=== PATIENT | male | born 1980 | race Caucasian/White ===

== ENCOUNTER → 2017-06-16 08:01 | Outpatient (CLI) | payer OTHER, SELFPAY ==
[2017-06-16 08:50] LABS: Cholesterol 155 mg/dL (200); Creatinine, Serum 1.04 mg/dL (0.70-1.30); EST Glomerular Filtration Rate 85 mL/min (>60); Est Glom Filt Rate - Afr Amer 103 mL/min (>60); Glucose 80 mg/dL (74-106); High Density Lipoprotein 34 mg/dL; Triglycerides 90 mg/dL; Very Low Density Lipoprotein 18 mg/dL (5-40)
[2017-06-16 16:17] LABS: Xtra Tube EP Lab EXTRA TUBE
[2017-06-16 16:19] LABS: Xtra Tube EP Lab EXTRA TUBE
== END ==
PROVIDERS: Visit Provider Family Medicine
DX: Z00.00 Encounter for general adult medical examination without abnormal findings (principal)
CPT/HCPCS: 36415; 80061; 82565; 82947

== ENCOUNTER 2023-10-07 06:33 | Observation (INO) | payer OTHER, SELFPAY ==
[2023-10-07] VITALS (13 sets, daily range): BP systolic 130–170; BP diastolic 79–102; PULSE 75–105; RESP 16–18; TEMP 36.6–37.2; O2SAT 95–99; BMI 27.5; BMI 27.9
--- NOTE | 2023-10-07 | IMM_PTH ---
PATIENT: EKTA YORK LOC: MS3 U#:[id number] AGE/SX: 42/M [place] [facility] [place]: Dr. Chantal Lemus MD : 1980 BED: 1 DIS: 10/08/2023 SPEC #: [id number] RECD: 10/11/23 12:53 STATUS: SOUT REQ #: [id number] ARJUN: 10/07/23 00:[address]: Raffaele Nelson DEPT: IMMUNOHISTOCHEMISTRY RECD BY: Gianfranco Ascencio ENTERED: 10/11/23 12:54 SP TYPE: IMMUNO OTHR DR: MD Dr. Chantal Wolf MD Tissues: B - Esophagus, NOS Procedures: P53 (initial) KI-67 (add) Comments: @ Ordering doctor for P53 edited from to @ by DIO at 10/11/23 1300 @ Ordering doctor for KI67. edited from to @ by DIO at 10/11/23 1300 @ Submitting doctor edited from to @ by DIO at 10/11/23 1300 PHYSICIAN & [place] [phone] SPECIMEN INFORMATION: Tissue Source: B- Distal esophagus Clinical Info: Upper GI bleed Specimen Number: [id number] CPT code: 47602,12815 METHODOLOGY: Deparaffinized sections of prefer/formalin-fixed tissue or PAP/DQ stained slides are incubated with monoclonal/polyclonal antibodies/oligonucleotide probes. Localization is made via biotin free immunoperoxidase method. Appropriate controls are performed and reacted as expected. Results on target cell population are indicated in the following table: RESULTS: ANTIBODY / CLONE RESULT Block B P53 (DO-7) positive, wild type pattern Ki-67 (30-9) positive, low These tests were developed and their performance characteristics determined by [facility]. They may not have been cleared or approved by the U.S. Food and Drug Administration. The FDA has determined that such clearance or approval is not necessary. The above immunohistochemical/dualISH markers are ordered and reviewed by the Pathologist. INTERPRETATION: B. Distal esophagus, biopsy: No evidence of dysplasia. NHAN/ 10/12/2023
--- NOTE | 2023-10-07 06:54 | CT_ITS ---
STUDY: CTA ABDOMEN AND PELVIS WITH CONTRAST REASON FOR EXAM: Male, 42 years old. GI bleed RADIATION DOSAGE (If Supplied By Facility): CTDIvol = ( 17.74 ) mGy, DLP = ( 762.18 ) mGycm TECHNIQUE: Transaxial images were obtained from the dome of the diaphragm to the symphysis pubis without oral contrast. IV 100mL Isovue-370 was administered. Sagittal and coronal images were reconstructed. Individualized dose optimization techniques were used for this CT. COMPARISON: None. FINDINGS: Minimal atelectasis and/or scarring in the anterior aspect of the left lower lobe. The visualized portions of the heart are within normal limits. There is decreased attenuation of the liver consistent with steatosis. Normal gallbladder and extrahepatic biliary system. Normal spleen. Normal pancreas. Normal bilateral adrenal glands. Normal right kidney. Normal left kidney. There is a small hiatal hernia. Normal small intestine. Moderate amount of fecal material is seen in the rectosigmoid colon. The appendix is visualized and appears normal. Normal abdominal aorta. Normal inferior vena cava. Normal retroperitoneum. Normal urinary bladder. There is enlargement of the prostate gland. The prostate measures 5.9 cm x 3.9 cm. This causes indentation at the bladder base. Normal abdominal wall. Normal osseous structures. CT/CTA Abd/Pelvis W/WO Contrast IMPRESSION: Fatty infiltration of the liver. Moderate amount of fecal material is seen in the rectosigmoid colon. No evidence of extravasation of contrast. Electronically Signed: Barrie Hutchison MD at 8:53 EDT ,
--- NOTE | 2023-10-07 06:56 | EX.ED.DYSGE1 ---
HPI History of Present Illness Chief Complaint: GI Bleed Informant: patient and spouse/S.O. Narrative Narrative: Patient is a 42-year-old male with no significant past medical history. He states that he does not drink alcohol frequently does not have a history of bleeding disorder nor does he use blood thinners. He denies any family history or personal history of liver disease. He states he occasionally takes Aleve secondary to headache and drinks a few cups of coffee a day. He states yesterday he felt nauseous and had a bout of vomiting and it was like dark water. He states that after vomiting he did feel better and did not think much of this. However this morning his stomach was upset and he went to the bathroom and he had dark tarry stool. Therefore with a bout of dark emesis yesterday and now dark stool this morning he had concern for internal bleeding and comes in for evaluation [facility] Medical History no medical history Home Medications ?Medication ?Instructions ?Recorded ?Last Taken ?Type NK 10/07/23 Unknown History Allergy/AdvReac Type Severity Reaction Status Date / Time No Known Allergies Allergy Verified 10/07/23 06:34 Surgical History no surgical history Social History Smoking Status: Former smoker [facility] [place] ED Constitutional Constitutional ED: Denies chills or fever(s) Eyes Eyes: Denies change in vision ENT ENT ED: Denies rhinorrhea or sore throat Cardiovascular Cardiovascular: Reports racing heartbeat; Denies chest pain or palpitations Respiratory/Chest Respiratory/Chest: Denies cough or dyspnea Gastrointestinal Gastrointestinal: Reports melena and vomiting; Denies abdominal pain, diarrhea or nausea Genitourinary Genitourinary ED: Denies dysuria or hematuria Musculoskeletal Musculoskeletal: Denies myalgias Integumentary Denies rash Neurologic Neurologic: Denies headache(s) Hematologic/Lymphatic Hematologic/Lymphatic: Denies easy bleeding or easy bruising EXAM Physical Exam Const Vital Signs: 10/07/23 06:34 Temperature 97.9 F Temperature Source Temporal Pulse Rate 97 Respiratory Rate 18 Blood Pressure 170/95 H Blood Pressure Mean 120 Pulse Ox 97 Positive well nourished and well developed General Appearance ED: well developed; Negative for pallor HEENT Reports moist mucous membranes HEENT Narrative: No dark discoloration in the posterior pharynx no dried blood or active bleeding noted No secondary changes to suggest infection Eyes PERRL and EOMs intact bilaterally General Eye ED: Negative for pale conjunctiva or scleral icterus Neck supple Resp normal respiratory effort and clear to auscultation bilaterally Cardio regular rhythm Rate: tachycardic and other Other Details: Tachycardic rate with regular rhythm No murmurs rubs or gallops Radial and carotid pulses are equal and symmetric GI normal to inspection, nondistended, normoactive bowel sounds, non-tender, non-distended and no masses GI Narrative: No voluntary guarding or rigidity or pulsatile mass Auscultation: normoactive bowel sounds Palpation: soft Narrative: No anal fissure or external hemorrhoids noted Rectal tone is normal Stool is melanotic in color Extremity normal to inspection Neuro oriented x3, CN's II-XII intact bilaterally and no sensory deficits noted Sensorium / Orientation: alert Motor Exam: strength 5/5 throughout Psych mental status grossly normal Skin no rashes or lesions noted, no wounds and skin turgor normal Skin Narrative: Capillary refills less than 3 seconds General Skin Exam: Negative for jaundice or pallor MDM MDM MDM Narrative Medical decision making narrative: Patient arrived to the ER mildly hypertensive and tachycardic but otherwise with stable vitals. He reports that he uses occasional caffeine and occasional NSAIDs but and has not on a daily basis and caffeine is reportedly mild in nature. He denies any history of intestinal disorder such as ulcer colitis or Crohn's disease and any history of bleeding disorder or blood thinner use. However with report of of hematemesis and physical exam showing melanotic stool there is concern for acute GI bleed most likely from potential gastritis/stomach ulcer. As he is only mildly tachycardic but awake alert and hypertensive not hypotensive I would not start blood at this time the patient will be placed on IV fluids and Protonix bolus and drip. As he denies any history of alcohol abuse I have low concern that this is esophageal variceal bleeding and will hold off on any type of octreotide medication. At this time blood work and CTA are still pending and therefore patient will be signed out to the day physician Dr. Elder pending results. History & Record Review Discussion w/independent historian: Patient and Significant other Discharge Plan Triage Chief Complaint: GI Bleed ED Provider: Jim Jones Dx/Rx/DC Orders Clinical Impression: GI (gastrointestinal bleed), Gastritis Prescriptions: No Action NK Primary Care Provider: Adarsh Jasso Referrals: Adarsh Jasso MD [Primary Care Provider] - Print Language: Zambian
[2023-10-07] MEDS: 0.9% Normal Saline (1000mL) 1,000 ML 999 ML IV (07:01)
[2023-10-07 07:10] LABS: Absolute Lymphocyte Count 1.15 X10^3/uL (0.83-4.51); Absolute Neutrophil Count 8.6 X10^3/uL (2.0-7.7); Basophil# 0.04 X10^3/uL; Basophil% 0.4 % (0-1); Eosinophil# 0.12 X10^3/uL; Eosinophils% 1.1 % (0-5); Hematocrit 36.1 % (40-54); Hemoglobin 12.2 g/dL (13.0-16.5); Lymphocyte # 1.15 X10^3/ul (0.83-4.51); Lymphocyte % 10.7 % (19-41); Mean Corp Hgb Conc 33.8 g/dL (32-36); Mean Corpuscular Hgb 29.4 pg (27.0-32.0); Mean Platelet Vol. 9.2 fl (6.2-12.0); Monocyte# 0.79 X10^3/uL; Monocyte% 7.4 % (0-10); NRBC Flagged by Analyzer 0 % (0-5); Neutrophil # 8.57 X10^3/uL (2.7-7.7); Neutrophil % 79.9 % (47-70); Platelet Count 278 K/mm3 (150-450); RBC Distribution Width CV 12.9 % (11.6-14.6); RBC Distribution Width SD 40.5 fl (35.1-43.9); Red Blood Count 4.15 M/mm3 (4.6-6.2); White Blood Count 10.7 K/mm3 (4.4-11.0)
[2023-10-07] MEDS: Pantoprazole Sodium 80 MG in 0.9% Normal Saline (50mL Bag) 15 ML 420 MG IV BOLUS (07:25)
[2023-10-07 07:30] LABS: AST(SGOT) 18 U/L (15-37); Alanine Aminotransfer ALT/SGPT 30 U/L (16-61); Albumin, Serum 3.6 g/dL (3.2-5.0); Alkaline Phosphatase 54 U/L (45-117); Anion Gap 6 (5-15); BUN 25 mg/dL (7-18); BUN/Creat Ratio 28.2 RATIO (10-20); Bilirubin, Direct 0.14 mg/dL (0.00-0.30); Chloride 105 mmol/L (98-107); Creatinine, Serum 0.88 mg/dL (0.70-1.30); EST Glomerular Filtration Rate 99 mL/min (>60); Est Glom Filt Rate - Afr Amer 120 mL/min (>60); Estimated Creatinine Clearance 107.12 ml/min; Globulin 2.9 g/dL (2.2-4.2); Glucose 123 mg/dL (74-106); Potassium 3.8 mmol/L (3.5-5.1); Protein, Total 6.5 g/dL (6.4-8.2); Sodium Level 137 mmol/L (136-145)
[2023-10-07 07:34] LABS: Lactic Acid 1.6 mmol/L (0.4-1.9)
[2023-10-07 07:37] LABS: International Normalized Ratio 1.1; Prothrombin Time (Protime)PT. 14.1 SECONDS (11.7-14.9)
[2023-10-07] MEDS: Pantoprazole Sodium 80 MG in 0.9% Normal Saline (100mL Bag) 80 ML 10 MG CONT INF ×2 (07:38→17:20)
[2023-10-07 09:15] LABS: Partial Thromboplast Time 25.4 Seconds (24.1-36.2)
--- NOTE | 2023-10-07 09:45 | PCM.HP.STD ---
[facility] - General General Date of Admission: 10/07/23 Date of Service: 10/07/23 Chief Complaint: GI bleed HPI Narrative EKTA YORK, is a 42 M with no significant PMh who presents via the ED on 10/07/2023 with a complaint of coffee ground emesis and black tarry stools. He denies any history of alcohol use and only occasionally takes pain meds like Aleve. He states he came home from work yesterday and felt nauseous. He threw up and was dark like coffee ground. He also felt weak and lightheaded. He subsequently had a bowel movement and it was black and tarry. He denied any chest pain, abdominal pain, shortness of breath or any exertional weakness. Review of systems otherwise negative. He has no history of peptic ulcer disease and denies any weight loss. Vitals in the ED were blood pressure 167/102, pulse rate of 89, respirate rate of 16 and temperature of 98.2 Fahrenheit. She was saturating at 97% on room air. [facility] Medical History no medical history Home Medications ?Medication ?Instructions ?Recorded ?Last Taken ?Type fluticasone propionate 50 1 spray intranasal DAILY PRN 10/07/23 Unknown History mcg/actuation nasal allergy symptoms spray,suspension (Allergy Relief (fluticasone)) loratadine 10 mg tablet (Allergy 10 mg PO DAILY PRN allergy symptoms 10/07/23 Unknown History Relief (loratadine)) Allergy/AdvReac Type Severity Reaction Status Date / Time No Known Allergies Allergy Verified 10/07/23 06:34 Surgical History no surgical history Social History Smoking Status: Current some day smoker tobacco type: smokeless tobacco ROS Constitutional Constitutional: Reports fatigue, malaise and weakness; Denies anorexia, chills, fever(s) or night sweats Eyes Eyes: Denies change in vision ENT HEENT: Denies dysphagia, headache(s), loss taste/smell or throat swelling Cardiovascular Cardiovascular: Denies chest pain, edema, orthopnea, palpitations, paroxysmal nocturnal dyspnea or syncope Respiratory/Chest Respiratory/Chest: Denies cough, shortness of breath at rest or shortness of breath with exertion Gastrointestinal Gastrointestinal: Reports melena, nausea and vomiting; Denies abdominal pain, constipation, diarrhea, dyspepsia, hematemesis or hematochezia Genitourinary Genitourinary: Denies dysuria or nocturia Musculoskeletal Musculoskeletal: Denies joint pain Integumentary Integumentary: Denies dry skin Neurologic Neurologic: Denies abnormal speech, confusion, dizziness, focal weakness or headache(s) Psychiatric Psychiatric: Denies anxiety or depression Endocrine Endocrinology: Denies change in body appearance Vital Signs Vital Signs Vital Signs: 10/07/23 06:34 10/07/23 08:34 Temperature 97.9 F Temperature Source Temporal Pulse Rate 97 86 Respiratory Rate 18 16 Blood Pressure 170/95 H 147/80 H Blood Pressure Mean 120 102 Pulse Ox 97 99 Oxygen Delivery Method Room Air Weight Weight: 186 lb 8.177 oz Body Mass Index (BMI) 27.5 Physical Exam Const alert, oriented x3, no apparent distress and well nourished General Appearance: cooperative and well developed HEENT normocephalic, head/scalp atraumatic, moist oral mucous membranes and oropharynx normal Eyes PERRL and EOMs intact bilaterally Neck no lymphadenopathy, supple and no JVD Lymph Lymphatic: no lymphadenopathy noted and no lymphedema noted Resp normal respiratory effort, normal air movement and clear to auscultation bilaterally Cardio regular rate, regular rhythm, S1 normal heart sound, S2 normal heart sound and no murmurs GI normal to inspection, nondistended, normoactive bowel sounds, soft to palpation, non-tender and non-distended Extremity normal capillary refill, no clubbing, cyanosis or edema and no calf tenderness General Extremity: no tenderness to palpation of joints or extremities Skin General Skin Exam: no breakdown Neuro CN's II-XII intact bilaterally, no focal motor deficits, no sensory deficits noted and deep tendon reflexes 2+ bilaterally Motor Exam: strength 5/5 throughout and general weakness Psych thought process normal and cooperative Appearance: appropriate Results Lab / Micro Data 10/07/23 06:46 10/07/23 06:46 Labs: Laboratory Results - last 24 hr 10/07/23 06:46: WBC 10.7, RBC 4.15 L, Hgb 12.2 L, Hct 36.1 L, MCV 87.0, MCH 29.4, MCHC 33.8, RDW Std Deviation 40.5, RDW Coeff of Omar 12.9, Plt Count 278, MPV 9.2, Immature Gran % (Auto) 0.500, Neut % (Auto) 79.9 H, Lymph % (Auto) 10.7 L, [place] % (Auto) 7.4, Eos % (Auto) 1.1, Baso % (Auto) 0.4, Absolute Neuts (auto) 8.6 H, Absolute Lymphs (auto) 1.15, Nucleated RBC % 0, PT 14.1, INR 1.1, APTT 25.4, Sodium 137, Potassium 3.8, Chloride 105, Carbon Dioxide 26.0, Anion Gap 6, BUN 25 H, Creatinine 0.88, Estim Creat Clear Calc 107.12, Est GFR (MDRD) Af Amer 120, Est GFR (MDRD) Non-Af 99, BUN/Creatinine Ratio 28.2 H, Glucose 123 H, Calcium 9.0, Total Bilirubin 0.60, Direct Bilirubin 0.14, AST 18, ALT 30, Alkaline Phosphatase 54, Total Protein 6.5, Albumin 3.6, Globulin 2.9 10/07/23 07:01: Lactic Acid 1.6 Micro: Microbiology 10/07/23 06:46 Stool Stool Occult Blood (HERNAN) - Final Occult Blood Positive Imaging Radiology Impression Abdomen/Pelvis CTA 10/07/23 06:54 IMPRESSION: Fatty infiltration of the liver. Moderate amount of fecal material is seen in the rectosigmoid colon. No evidence of extravasation of contrast. Electronically Signed: Barrie Hutchison MD at 8:53 EDT , Assessment & Plan Assessment/Plan (1) GI (gastrointestinal bleed): PLAN: Plan #Acute Gi bleed admit to med surg had an episode of hematemesis and melena stools. Hb was 12.2 on admission, but trended down to 10.6 started on pantoprazole drip GI consulted She has a history of taking Aleve occasionally for generalized body pain. He therefore may have gastritis or peptic ulcer disease For EGD today. #Acute anemia due to GI bleed: Hb is 10.6. Was 12.2 on admission. asked about timing and crossing. I told I will type and screen patient but would only transfuse if hemoglobin dropped to <7. Charges/Coding Visit Charges Inpatient E&M: 67796 Init Hosp L3
--- NOTE | 2023-10-07 09:45 | NURSING ---
DR MATEO CHASE
[2023-10-07 10:05] LABS: Hematocrit 31.2 % (40-54); Hemoglobin 10.6 g/dL (13.0-16.5)
--- NOTE | 2023-10-07 10:06 | NURSING ---
MED SURG KORAM GI BLEED
[2023-10-07] MEDS: Acetaminophen 325 MG Tablet 650 MG PO (10:46)
[2023-10-07] MEDS: Ondansetron 4 MG/2 ML Vial IV (10:46)
[2023-10-07] MEDS: 0.9% Normal Saline (1000mL) 1,000 ML 125 ML IV ×2 (10:46→17:57)
--- NOTE | 2023-10-07 14:35 | EGD_PTH ---
PATIENT: EKTA YORK LOC: MS3 U#:[id number] AGE/SX: 42/M ROOM: [facility] [place] RE10/07/[address]: Dr. Chantal Lemus MD : 1980 BED: 1 DIS: 10/08/2023 SPEC #: [id number] RECD: 10/10/23 08:54 STATUS: DAMARI RELeslie #: [id number] ARJUN: 10/07/23 14:[address]: Raffaele Nelson DEPT: SURGICAL PATHOLOGY RECD BY: Margarita Sr ENTERED: 10/10/23 11:35 SP TYPE: EGD BIOPSY OT DR: MD Dr. Chantal Wolf MD Tissues: A - Duodenum, NOS B - Esophagus, NOS Procedures: Special Stain Group I Surgery Specimen Level IV Alcian Blue/PAS (control) HEADER OPERATION: EGD with biopsy and cautery with gold probe PRE-OP DIAGNOSIS: Upper GI bleed TISSUE SUBMITTED: A- Duodenum biopsy, B- Distal esophagus biopsy MICROSCOPIC DIAGNOSIS A. Duodenum, biopsy: Suggestive of Jorge Luis's gland hyperplasia. Focal gastric metaplasia. Mild non-specific chronic inflammation. B. Distal esophagus, biopsy: Gastroesophageal junction with mild chronic inflammation. Goblet cell metaplasia consistent with Worley's esophagus. No evidence of dysplasia. Focal changes of reflux. See comment. AM/ 10/11/2023 COMMENT B. Alcian blue/PAS stain with matched control supports the above diagnosis. Immunohistochemistry ([id number]) for P53 and Ki-67 will be performed and results will be reported separately. MICROSCOPIC DESCRIPTION Slides are reviewed. GROSS DESCRIPTION A. Received in fixative is one container labeled with the patient's name and designated Duodenum biopsy. The specimen consists of two irregular fragments of light boone soft tissue that in aggregate measure 0.6 x 0.5 x 0.1 cm. The specimen is totally submitted in one cassette. B. Received in fixative is one container labeled with the patient's name and designated Distal esophagus biopsy. The specimen consists of multiple irregular fragments of light boone soft tissue that in aggregate measure 0.9 x 0.6 x 0.1 cm. The specimen is totally submitted in one cassette. NHAN/ 10/10/2023 TC:3 CPT:57504u8,00768
--- NOTE | 2023-10-07 19:41 | EX.PCM.CON.G ---
HPI Consult Data Date of Consult: 10/07/23 HPI Narrative Reason for Consultation: Upper GI bleed HPI Narrative: EKTA YORK, is a 42 M with no significant past medical history. He states that he does not drink alcohol frequently does not have a history of bleeding disorder nor does he use blood thinners. He denies any family history or personal history of liver disease. He states he occasionally takes Aleve secondary to headache and drinks a few cups of coffee a day. He states yesterday he felt nauseous and had a bout of vomiting and it was like dark water. He states that after vomiting he did feel better and did not think much of this. However this morning his stomach was upset and he went to the bathroom and he had dark tarry stool. Therefore with a bout of dark emesis yesterday and now dark stool this morning he had concern for internal bleeding and comes in for evaluation. He has no history of peptic ulcer disease and denies any weight loss. Vitals in the ED were blood pressure 167/102, pulse rate of 89, respirate rate of 16 and temperature of 98.2 Fahrenheit. She was saturating at 97% on room air. [facility] Medical History no medical history Home Medications ?Medication ?Instructions ?Recorded ?Last Taken ?Type fluticasone propionate 50 1 spray intranasal DAILY PRN 10/07/23 Unknown History mcg/actuation nasal allergy symptoms spray,suspension (Allergy Relief (fluticasone)) loratadine 10 mg tablet (Allergy 10 mg PO DAILY PRN allergy symptoms 10/07/23 Unknown History Relief (loratadine)) Allergy/AdvReac Type Severity Reaction Status Date / Time No Known Allergies Allergy Verified 10/07/23 06:34 Surgical History no surgical history Social History Smoking Status: Current some day smoker tobacco type: smokeless tobacco ROS Constitutional Constitutional: Reports fatigue, malaise and weakness; Denies anorexia, chills, fever(s) or night sweats Eyes Eyes: Denies change in vision ENT HEENT: Denies dysphagia, headache(s), loss taste/smell or throat swelling Cardiovascular Cardiovascular: Denies chest pain, edema, orthopnea, palpitations, paroxysmal nocturnal dyspnea or syncope Respiratory/Chest Respiratory/Chest: Denies cough, shortness of breath at rest or shortness of breath with exertion Gastrointestinal Gastrointestinal: Reports melena, nausea and vomiting; Denies abdominal pain, constipation, diarrhea, dyspepsia, hematemesis or hematochezia Genitourinary Genitourinary: Denies dysuria or nocturia Musculoskeletal Musculoskeletal: Denies joint pain Integumentary Integumentary: Denies dry skin Neurologic Neurologic: Denies abnormal speech, confusion, dizziness, focal weakness or headache(s) Psychiatric Psychiatric: Denies anxiety or depression Endocrine Endocrinology: Denies change in body appearance Physical Exam Const alert, oriented x3, no apparent distress and well nourished General Appearance: cooperative and well developed HEENT normocephalic, head/scalp atraumatic, moist oral mucous membranes and oropharynx normal Eyes PERRL and EOMs intact bilaterally Neck no lymphadenopathy, supple and no JVD Lymph Lymphatic: no lymphadenopathy noted and no lymphedema noted Resp normal respiratory effort, normal air movement and clear to auscultation bilaterally Cardio regular rate, regular rhythm, S1 normal heart sound, S2 normal heart sound and no murmurs GI normal to inspection, nondistended, normoactive bowel sounds, soft to palpation, non-tender and non-distended Extremity normal capillary refill, no clubbing, cyanosis or edema and no calf tenderness General Extremity: no tenderness to palpation of joints or extremities Skin General Skin Exam: no breakdown Neuro CN's II-XII intact bilaterally, no focal motor deficits, no sensory deficits noted and deep tendon reflexes 2+ bilaterally Motor Exam: strength 5/5 throughout and general weakness Psych thought process normal and cooperative Appearance: appropriate Lab / Micro Data 10/07/23 06:46 10/07/23 06:46 Labs: Laboratory Results - last 24 hr 10/07/23 06:46: WBC 10.7, RBC 4.15 L, Hgb 12.2 L 10/07/23 06:46: Hgb 10.6 L, Hct 36.1 L 10/07/23 06:46: Hct 31.2 L, MCV 87.0, MCH 29.4, MCHC 33.8, RDW Std Deviation 40.5, RDW Coeff of Omar 12.9, Plt Count 278, MPV 9.2, Immature Gran % (Auto) 0.500, Neut % (Auto) 79.9 H, Lymph % (Auto) 10.7 L, [place] % (Auto) 7.4, Eos % (Auto) 1.1, Baso % (Auto) 0.4, Absolute Neuts (auto) 8.6 H, Absolute Lymphs (auto) 1.15, Nucleated RBC % 0, PT 14.1, INR 1.1, APTT 25.4, Sodium 137, Potassium 3.8, Chloride 105, Carbon Dioxide 26.0, Anion Gap 6, BUN 25 H, Creatinine 0.88, Estim Creat Clear Calc 107.12, Est GFR (MDRD) Af Amer 120, Est GFR (MDRD) Non-Af 99, BUN/Creatinine Ratio 28.2 H, Glucose 123 H, Calcium 9.0, Total Bilirubin 0.60, Direct Bilirubin 0.14, AST 18, ALT 30, Alkaline Phosphatase 54, Total Protein 6.5, Albumin 3.6, Globulin 2.9 10/07/23 07:01: Lactic Acid 1.6 Micro: Microbiology 10/07/23 06:46 Stool Stool Occult Blood (HERNAN) - Final Occult Blood Positive Imaging Radiology Impression Abdomen/Pelvis CTA 10/07/23 06:54 IMPRESSION: Fatty infiltration of the liver. Moderate amount of fecal material is seen in the rectosigmoid colon. No evidence of extravasation of contrast. Electronically Signed: Barrie Hutchison MD at 8:53 EDT , Assessment & Plan Assessment/Plan (1) GI (gastrointestinal bleed): PLAN: Plan 42-year-old gentleman with no significant past medical history comes in with upper GI bleed. Differential diagnosis does include Landy-Mccullough tear, peptic ulcer disease, erosive esophagitis, angiodysplasia, neoplasia. Hb was 12.2 on admission, but trended down to 10.6. Recommend upper endoscopy to evaluate his upper GI tract. He was explained alternatives, risk, benefits including not withstanding bleeding, infection, sepsis, perforation, need for surgery and . He will have an ASA of 3. Charges/Coding Visit Charges Inpatient E&M: 49075 Init Hosp L3
--- NOTE | 2023-10-07 20:28 | OP.CCLET_ITS ---
10/07/2023 Adarsh Jasso [address] [place] [address] Re : Upper GI endoscopy procedure for Stan Child Dear Dr. Jasso This procedure was performed on Saturday, October 07, 2023. My impressions and recommendations are as follows: Impressions : - Esophageal mucosal changes consistent with long-segment Worley's esophagus. Biopsied. - LA Grade D erosive esophagitis with bleeding. Treated with a monopolar probe. - Medium-sized hiatal hernia. - Duodenal erosions with bleeding. Biopsied. Treated with a monopolar probe. Recommendations : - [facility]. - Clear liquid diet today. - Continue present medications. - Await pathology results. - Omeprazole 40 mg twice daily x 3 months and then repeat upper endoscopy My findings are described in the full procedure note, which is enclosed. If I can be of further assistance, please feel free to contact me at . Sincerely, Raffaele Nelson, 10/07/2023 8:27:16 PM This report has been signed electronically.
--- NOTE | 2023-10-07 20:28 | OP.EGD_ITS ---
Patient Name: Stan Child Procedure Date: 10/07/2023 7:54 PM Date of : 1980 Age: 42 Procedure: Upper GI endoscopy Indications: Iron deficiency anemia, Hematemesis, Melena Providers: Raffaele Nelson DO Medicines: Monitored Anesthesia Care Patient Profile: This is a 42 year old male. Refer to note in patient chart for documentation of history and physical. Patient has symptoms of acute epigastric abdominal pain and acute vomiting. Complications: No immediate complications. Procedure: Pre-Anesthesia Assessment: - Prior to the procedure, a History and Physical was performed, and patient medications and allergies were reviewed. The risks and benefits of the procedure and the sedation options and risks were discussed with the patient. All questions were answered and informed consent was obtained. Patient identification and proposed procedure were verified by the physician in the pre-procedure area. Mental Status Examination: alert and oriented. Airway Examination: normal oropharyngeal airway and neck mobility. Respiratory Examination: clear to auscultation. CV Examination: normal. Prophylactic Antibiotics: The patient does not require prophylactic antibiotics. Prior Anticoagulants: The patient has taken no anticoagulant or antiplatelet agents. After reviewing the risks and benefits, the patient was deemed in satisfactory condition to undergo the procedure. The anesthesia plan was to use monitored anesthesia care (MAC). Immediately prior to administration of medications, the patient was re-assessed for adequacy to receive sedatives. The heart rate, respiratory rate, oxygen saturations, blood pressure, adequacy of pulmonary ventilation, and response to care were monitored throughout the procedure. The physical status of the patient was re-assessed after the procedure. After obtaining informed consent, the endoscope was passed under direct vision. Throughout the procedure, the patient's blood pressure, pulse, and oxygen saturations were monitored continuously. The Endoscope was introduced through the mouth, and advanced to the second part of duodenum. The upper GI endoscopy was accomplished without difficulty. The patient tolerated the procedure well. Scope In: 8:07:37 PM Scope Out: 8:16:34 PM Total Procedure Duration Time 0 hours 8 minutes 57 seconds Findings: There were esophageal mucosal changes consistent with long-segment Worley's esophagus present in the lower third of the esophagus. The maximum longitudinal extent of these mucosal changes was 6 cm in length. Mucosa was biopsied with a cold forceps for histology in a targeted manner at intervals of 1 cm in the lower third of the esophagus. One specimen bottle was sent to pathology. Verification of patient identification for the specimen was done. Estimated blood loss was minimal. LA Grade D (one or more mucosal breaks involving at least 75% of esophageal circumference) esophagitis with bleeding was found 35 to 42 cm from the incisors. Coagulation for hemostasis using monopolar probe was successful. Estimated blood loss was minimal. A medium-sized hiatal hernia was present. No other significant abnormalities were identified in a careful examination of the stomach. Multiple localized erosions with bleeding were found in the duodenal bulb. Biopsies were taken with a cold forceps for histology. Verification of patient identification for the specimen was done. Coagulation for hemostasis using monopolar probe was successful. Impression: - Esophageal mucosal changes consistent with long-segment Worley's esophagus. Biopsied. - LA Grade D erosive esophagitis with bleeding. Treated with a monopolar probe. - Medium-sized hiatal hernia. - Duodenal erosions with bleeding. Biopsied. Treated with a monopolar probe. Recommendation: - [facility]. - Clear liquid diet today. - Continue present medications. - Await pathology results. - Omeprazole 40 mg twice daily x 3 months and then repeat upper endoscopy Procedure Code(s): --- Professional --- 20812, 59, Esophagogastroduodenoscopy, flexible, transoral; with control of bleeding, any method 27858, 51, Esophagogastroduodenoscopy, flexible, transoral; with biopsy, single or multiple CPT copyright 2021 [employer]. All rights reserved. The codes documented in this report are preliminary and upon assistant associate professor review may be revised to meet current compliance requirements. Raffaele Nelson DO 10/07/2023 8:27:16 PM This report has been signed electronically. Number of Addenda: 0 Note Initiated On: 10/07/2023 7:54 PM
[2023-10-08] MEDS: Pantoprazole Sodium 80 MG in 0.9% Normal Saline (100mL Bag) 80 ML 10 MG CONT INF (03:32)
[2023-10-08 03:43] VITALS: BP 143/82; PULSE 87; RESP 16; TEMP 36.8; O2SAT 96
[2023-10-08 03:58] LABS: Absolute Lymphocyte Count 1.29 X10^3/uL (0.83-4.51); Absolute Neutrophil Count 5.9 X10^3/uL (2.0-7.7); Basophil# 0.02 X10^3/uL; Basophil% 0.3 % (0-1); Eosinophil# 0.11 X10^3/uL; Eosinophils% 1.4 % (0-5); Hematocrit 29.1 % (40-54); Hemoglobin 9.9 g/dL (13.0-16.5); Lymphocyte # 1.29 X10^3/ul (0.83-4.51); Lymphocyte % 16.2 % (19-41); Mean Corpuscular Hgb 29.9 pg (27.0-32.0); Mean Corpuscular Volume 87.9 fL (80-94); Mean Platelet Vol. 9.1 fl (6.2-12.0); Monocyte# 0.58 X10^3/uL; Monocyte% 7.3 % (0-10); NRBC Flagged by Analyzer 0 % (0-5); Neutrophil # 5.91 X10^3/uL (2.7-7.7); Neutrophil % 74.4 % (47-70); Platelet Count 207 K/mm3 (150-450); RBC Distribution Width CV 13.2 % (11.6-14.6); RBC Distribution Width SD 42.4 fl (35.1-43.9); Red Blood Count 3.31 M/mm3 (4.6-6.2); White Blood Count 7.9 K/mm3 (4.4-11.0)
[2023-10-08 04:20] LABS: Anion Gap 7 (5-15); BUN 15 mg/dL (7-18); BUN/Creat Ratio 16.4 RATIO (10-20); Calcium,Total 8.4 mg/dL (8.5-10.1); Chloride 108 mmol/L (98-107); Creatinine, Serum 0.92 mg/dL (0.70-1.30); EST Glomerular Filtration Rate 95 mL/min (>60); Est Glom Filt Rate - Afr Amer 115 mL/min (>60); Estimated Creatinine Clearance 111.23 ml/min; Glucose 107 mg/dL (74-106); Potassium 3.9 mmol/L (3.5-5.1); Sodium Level 139 mmol/L (136-145)
[2023-10-08 08:05] VITALS: BP 145/93; PULSE 72; RESP 18; TEMP 36.7; O2SAT 100
[2023-10-08] MEDS: Pantoprazole Sodium 40 MG Tablet PO (09:12)
--- NOTE | 2023-10-08 09:45 | DCINST_ITS ---
Discharge Instructions Diet Discharge Diet: Low fat / Low cholesterol Activity Discharge Activity: Return to Normal Activity Weight Bearing Status: Weight bearing as tolerated Dressing / Incision Call your doctor if you observe: Fever of 101 or Higher, Shortness of breath, Dizziness, Swelling in the ankles and Chest pain Follow Up Care Test Results: Test results from this visit will be discussed in further detail at your follow- up appointment, if applicable. Discharge Plan Admission Admit Date/Time: 10/07/23 09:52 Primary Reason for Your Visit: upper GI bleed Attending Provider: Chantal Lemus Primary Care Provider: Adarsh Jasso Instructions Patient Instructions: Esophagitis, What Is Worley Esophagus?, Worley Esophagus RFA Discharge Orders/Prescriptions Prescriptions: New omeprazole 40 mg capsule,delayed release(DR/EC) 40 mg PO BID Qty: 60 3RF Continued loratadine [Allergy Relief (loratadine)] 10 mg tablet 10 mg PO DAILY PRN (Reason: allergy symptoms) fluticasone propionate [Allergy Relief (fluticasone)] 50 mcg/actuation spray,suspension 1 spray intranasal DAILY PRN (Reason: allergy symptoms) Rx Instructions: administer into each nostril Discontinued omeprazole 40 mg capsule,delayed release(DR/EC) 40 mg PO BID Qty: 60 5RF Referrals / Follow Up: Adarsh Jasso MD [Primary Care Provider] - Raffaele Nelson DO [Med Staff - Active Staff] - Within 2 Weeks Adarsh Jasso MD [[facility]] - Within 2 Weeks Disposition Disposition (needs filled in before D/C Order can be placed): Home, Self Care
--- NOTE | 2023-10-08 09:46 | PCM.DC.SUM ---
Providers Date of Admission: 10/07/23 Date of Discharge: 10/08/23 Primary Care Physician: Dr. Adarsh Jasso MD Consultations 10/07/23 10:26 Consult: Gastroenterology Routine Consulting Provider: [facility] Reason for Consult: GI bleed EMERGENT Consult: No MD Notified: Yes Date Notified: 10/07/23 Time Notified: 09:54 Method of Notification: ED Physician Initiated Reason For Visit: UPPER GI BLEED Diagnosis Discharge Diagnosis (1) GI (gastrointestinal bleed): Status: Acute Code(s): K92.2 - Gastrointestinal hemorrhage, unspecified Plan #Acute Gi bleed admit to [facility] surg had an episode of hematemesis and melena stools. Hb was 12.2 on admission, but trended down to 10.6 started on pantoprazole drip GI consulted She has a history of taking Aleve occasionally for generalized body pain. He therefore may have gastritis or peptic ulcer disease For EGD today. #Acute anemia due to GI bleed: Hb is 10.6. Was 12.2 on admission. asked about timing and crossing. I told I will type and screen patient but would only transfuse if hemoglobin dropped to <7. Medications at Discharge Home Medications fluticasone propionate 50 mcg/actuation nasal spray,suspension (Allergy Relief (fluticasone)) 1 spray intranasal DAILY PRN allergy symptoms 10/07/23 loratadine 10 mg tablet (Allergy Relief (loratadine)) 10 mg PO DAILY PRN allergy symptoms 10/07/23 omeprazole 40 mg capsule,delayed release 40 mg PO BID #60 caps 10/08/23 Hospital Course Operations None Procedures EGD Summary of Care Provided Minutes Spent on Discharge: 45 Hospital Course: EKTA YORK, is a 42 M with no significant PMh who presents via the ED on 10/07/2023 with a complaint of coffee ground emesis and black tarry stools. He denies any history of alcohol use and only occasionally takes pain meds like Aleve. He states he came home from work yesterday and felt nauseous. He threw up and was dark like coffee ground. He also felt weak and lightheaded. He subsequently had a bowel movement and it was black and tarry. He denied any chest pain, abdominal pain, shortness of breath or any exertional weakness. Review of systems otherwise negative. He has no history of peptic ulcer disease and denies any weight loss. Vitals in the ED were blood pressure 167/102, pulse rate of 89, respirate rate of 16 and temperature of 98.2 Fahrenheit. She was saturating at 97% on room air. He was admitted and managed for GI bleed. Gastroenterology was consulted. He was started on protonix drip. He had EGD which showed evidence of Troy's esophagus and esophagitis. His Hb trended down to 9.9 from 12 on admission. His coffee ground emesis and black tarry stools didnt recur. He remained stable and was discharged home on 10/08/2023. He was discharged on p.o. omeprazole 40 mg twice daily for 3 months. He is to follow-up with his primary care doctor and with gastroenterology within 1 to 2 weeks. Patient seen and examined prior to discharge. He had no active complaints and felt well. Review of symptoms otherwise negative. Labs and vitals reviewed. Medication reviewed and reconciled Physical Exam Const alert, oriented x3, no apparent distress and well nourished General Appearance: cooperative, comfortable, well kempt and well developed Orientation / Consciousness: awake, oriented to person, oriented to place and oriented to time Exam Limitations: no limitations HEENT normocephalic, head/scalp atraumatic, hearing grossly normal bilaterally, moist oral mucous membranes and oropharynx normal Mouth: oral and palatal mucosa normal Eyes PERRL, EOMs intact bilaterally and conjunctivae normal Neck no lymphadenopathy, supple and no JVD Lymph Lymphatic: no lymphadenopathy noted and no lymphedema noted Resp normal respiratory effort, normal air movement and clear to auscultation bilaterally Cardio regular rate, regular rhythm, S1 normal heart sound, S2 normal heart sound and no murmurs GI normal to inspection, nondistended, normoactive bowel sounds, soft to palpation, non-tender and non-distended Extremity normal to inspection, full ROM, normal capillary refill, no clubbing, cyanosis or edema and no calf tenderness General Extremity: no tenderness to palpation of joints or extremities Skin no rashes or lesions noted General Skin Exam: no breakdown Neuro oriented x3, CN's II-XII intact bilaterally, moves all extremities, no focal motor deficits, no sensory deficits noted and deep tendon reflexes 2+ bilaterally Motor Exam: strength 5/5 throughout and general weakness Psych thought process normal, cooperative and affect normal Appearance: appropriate Weight / BMI Weight Weight: 189 lb 3 oz Body Mass Index (BMI) 27.9 ABG / Lab / Microbiology Data 10/08/23 03:38 10/08/23 03:38 Laboratory: Laboratory Results - last 24 hr 10/07/23 06:46: Hgb 10.6 L, Hct 31.2 L 10/08/23 03:38: WBC 7.9, RBC 3.31 L, Hgb 9.9 L, Hct 29.1 L, MCV 87.9, MCH 29.9, MCHC 34.0, RDW Std Deviation 42.4, RDW Coeff of Omar 13.2, Plt Count 207, MPV 9.1, Immature Gran % (Auto) 0.400, Neut % (Auto) 74.4 H, Lymph % (Auto) 16.2 L, [place] % (Auto) 7.3, Eos % (Auto) 1.4, Baso % (Auto) 0.3, Absolute Neuts (auto) 5.9, Absolute Lymphs (auto) 1.29, Nucleated RBC % 0, Sodium 139, Potassium 3.9, Chloride 108 H, Carbon Dioxide 24.0, Anion Gap 7, BUN 15, Creatinine 0.92, Estim Creat Clear Calc 111.23, Est GFR (MDRD) Af Amer 115, Est GFR (MDRD) Non-Af 95, BUN/Creatinine Ratio 16.4, Glucose 107 H, Calcium 8.4 L Microbiology: Microbiology 10/07/23 06:46 Stool Stool Occult Blood (HERNAN) - Final Occult Blood Positive D/C Instructions Discharge Diet: Low fat / Low cholesterol Discharge Activity: Return to Normal Activity Weight Bearing Status: Weight bearing as tolerated Call your doctor if you observe: Fever of 101 or Higher, Shortness of breath, Dizziness, Swelling in the ankles and Chest pain Meaningful Use Info Meaningful Use Meaningful Use Diagnoses (Choose all that apply): None applicable Ischemic Stroke Statin Dosing Therapy Reference: STATIN DOSE THERAPY REFERENCE: * Patients > 75 years receive moderate or high dose statin therapy. * Patients 75 years or YOUNGER should receive HIGH intensity statin dose unless contraindicated. You will be required to document reason for non-treatment if statin daily dose does not meet guidelines. HIGH DOSE STATIN THERAPY DAILY Atorvastatin > than or = to 40 mg Rosuvastatin > than or = to 20 mg Amlodipine + Atorvastatin > than or = to 2.5/40 mg Ezetimibe + Simvastatin 10/80 mg Simvastatin 80mg Discharge Plan Admission Admit Date/Time: 10/07/23 09:52 Primary Reason for Your Visit: upper GI bleed Attending Provider: Chantal Lemus Primary Care Provider: Adarsh Jasso Instructions Patient Instructions: Esophagitis, What Is Worley Esophagus?, Worley Esophagus RFA Discharge Orders/Prescriptions Prescriptions: New omeprazole 40 mg capsule,delayed release(DR/EC) 40 mg PO BID Qty: 60 3RF Continued loratadine [Allergy Relief (loratadine)] 10 mg tablet 10 mg PO DAILY PRN (Reason: allergy symptoms) fluticasone propionate [Allergy Relief (fluticasone)] 50 mcg/actuation spray,suspension 1 spray intranasal DAILY PRN (Reason: allergy symptoms) Rx Instructions: administer into each nostril Discontinued omeprazole 40 mg capsule,delayed release(DR/EC) 40 mg PO BID Qty: 60 5RF Referrals / Follow Up: Adarsh Jasso MD [Primary Care Provider] - Raffaele Nelson DO [Med Staff - Active Staff] - Within 2 Weeks Adarsh Jasso MD [[facility]] - Within 2 Weeks Disposition Disposition (needs filled in before D/C Order can be placed): Home, Self Care Charges/Coding Visit Charges Inpatient E&M: 36031 Disch Hosp >30min
== END 2023-10-08 10:23 | disposition home or self-care (01) ==
LOC: ED 09:41 → MS3 11:10
PROVIDERS: Emergency Medicine; Internal Medicine Gastroenterology; Admitting Provider Student in an Organized Health Care Education/Training Program; Emergency Provider Emergency Medicine; PCP Family Medicine; Visit Provider Student in an Organized Health Care Education/Training Program
PROC: 0DJ08ZZ Inspection of Upper Intestinal Tract, Via Natural or Artificial Opening Endoscopic (ICD-10-PCS; CPT 43235; principal; 2023-10-07 14:30)
DX: K44.9 Diaphragmatic hernia without obstruction or gangrene (principal); K29.71 Gastritis, unspecified, with bleeding; K20.81 Other esophagitis with bleeding; D50.9 Iron deficiency anemia, unspecified; K26.4 Chronic or unspecified duodenal ulcer with hemorrhage; F17.290 Nicotine dependence, other tobacco product, uncomplicated
CPT/HCPCS: 43255; 43239; 36415; 74174; 80048; 80076; 82274; 83605; 85014; 85018; 85025; 85610; 85730; 88305; 88312; 88341; 88342; 96365; 96366; 96375; 99221; 99284; 99406; J7030; Q9967; A4216; G0378; J2405; J3490

== ENCOUNTER 2024-03-02 05:59 | Day surgery (SDC) | payer OTHER, SELFPAY ==
[2024-03-02] VITALS (7 sets, daily range): BP systolic 148–157; BP diastolic 88–105; PULSE 84–89; RESP 14–18; TEMP 37–37.1; O2SAT 96–98; BMI 29.0
== END 2024-03-02 08:03 | disposition home or self-care (01) ==
LOC: EN 06:00 → AC 06:01
PROVIDERS: PCP Family Medicine; Referring Provider Family Medicine; Visit Provider Internal Medicine Gastroenterology
PROC: 0DJ08ZZ Inspection of Upper Intestinal Tract, Via Natural or Artificial Opening Endoscopic (ICD-10-PCS; CPT 43235; principal; 2024-03-02 06:55)
DX: K22.70 Barrett's esophagus without dysplasia (principal); K44.9 Diaphragmatic hernia without obstruction or gangrene; K21.9 Gastro-esophageal reflux disease without esophagitis; F17.220 Nicotine dependence, chewing tobacco, uncomplicated
CPT/HCPCS: 43239; 88305; 88312; 88341; 88342; A4216; J2405